=== PATIENT | female | born 1965 | race Native Hawaiian/Other Pacific Islander ===

== ENCOUNTER 2017-08-13 18:10 | Inpatient (IN) | payer MEDICARE, MEDICAID ==
[~2017-08-13] VITALS: Ht 162.6 cm; Wt 98.5 kg
[~2017-08-13 18:10] MED LIST: ASPI81 PO; ASPI81TA33 PO; LISI-660 PO; LISI-661 PO; METF500T4 PO; OMEP20 PO; QUET300XR PO; TRAZ-147 PO; VITAD1000 PO
[2017-08-13] MEDS ORDERED: HALOPERIDOL 5 MG TABLET PO PRN (18:45)
[2017-08-13] MEDS ORDERED: ZOLPIDEM TARTRATE 10 MG TABLET PO PRN (18:45)
[2017-08-13] MEDS ORDERED: INFLUENZA VIRUS VACCINE QVS 2017-18 (3YR+)/PF 60 MCG/0.5 ML SYRINGE IM ONE ×2 (19:00→21:00)
[2017-08-13 19:07] VITALS: BP 117/80
[2017-08-13 19:58] LABS: GLUCOMETER DEV NAME(LOC) BV2S; GLUCOSE,POINT OF CARE 261 MG/DL (70-110)
[2017-08-13] MEDS ORDERED: GLUCAGON,HUMAN RECOMBINANT 1 MG VIAL IM PRN (20:30)
[2017-08-13 20:37] LABS: GLUCOMETER DEV NAME(LOC) BV2S; GLUCOSE,POINT OF CARE 220 MG/DL (70-110)
[2017-08-13] MEDS ORDERED: MAGNESIUM HYDROXIDE SUSPENSION 30 ML UDCUP PO PRN (20:45)
[2017-08-13] MEDS: INSULIN ASPART 100 UNITS/ML SQ PRN (20:49)
[2017-08-14 00:45] VITALS: BP 115/72
[2017-08-14] MEDS: LORazepam 2 MG TABLET PO PRN (00:53)
[2017-08-14 06:22] LABS: GLUCOMETER DEV NAME(LOC) BV2S; GLUCOSE,POINT OF CARE 211 MG/DL (70-110)
[2017-08-14] MEDS: INSULIN ASPART 100 UNITS/ML SQ PRN ×4 (06:54→20:45)
[2017-08-14] MEDS ORDERED: MetFORMIN HCL 500 MG TABLET PO SCH (08:00)
[2017-08-14 08:21] LABS: BASOPHILS # (AUTO) 0.04 K/uL (0.00-0.20); BASOPHILS % (AUTO) 0.6 % (0.0-2.0); EOSINOPHILS % (AUTO) 5.79 % (1.0-6.0); HEMATOCRIT 38.4 % (36-46); HEMOGLOBIN 12.9 g/dL (12.0-16.0); LYMPHOCYTES # (AUTO) 1.9 K/uL (1.0-4.8); LYMPHOCYTES % (AUTO) 26.9 % (22.0-44.0); MEAN CORPUSCULAR HEMOGLOBIN 30.6 pg (26.0-34.0); MEAN CORPUSCULAR HGB CONC 33.6 G/dL (31.0-37.0); MEAN CORPUSCULAR VOLUME 91 fL (80-100); MONOCYTES # (AUTO) 0.6 K/uL (0.1-1.0); MONOCYTES % (AUTO) 8.3 % (2.0-9.0); NEUTROPHILS % (AUTO) 58.4 % (40.0-70.0); PLATELET COUNT (AUTO) 255 K/uL (150-450); RED CELL DISTRIBUTION WIDTH 12.5 % (11.5-14.5)
[2017-08-14] MEDS: BACITRACIN 28.4 GM OINTMENT TP SCH ×2 (08:23→16:37)
[2017-08-14] MEDS: LISINOPRIL 5 MG TABLET PO SCH (08:26)
[2017-08-14] MEDS: NICOTINE 21 MG/24 HOUR PATCH TD SCH (08:30)
[2017-08-14 08:37] VITALS: BP 139/76
[2017-08-14 08:58] LABS: ALANINE AMINOTRANSFERASE 17 U/L (12-78); ALBUMIN 3.1 g/dL (3.4-5.0); ALKALINE PHOSPHATASE 69 U/L (46-116); ANION GAP 7 mmol/L (8-16); ASPARTATE AMINOTRANSFERASE 18 U/L (15-37); BILIRUBIN,TOTAL 0.4 mg/dL (0.1-1.0); CALCIUM, TOTAL 9.2 mg/dL (8.8-10.5); CARBON DIOXIDE 27 mmol/L (22-29); CHLORIDE 98 mmol/L (98-107); CHOL/HDL RATIO 2.5 (3.9-5.7); CHOLESTEROL 114 mg/dL (131-200); CREATININE 0.67 mg/dL (0.60-1.30); FREE T4 (FREE THYROXINE) 1.04 ng/dL (0.76-1.46); GLOMERULAR FILTR. RATE CALC > 60 mL/min (>60); GLUCOSE,RANDOM 217 mg/dL (70-110); HDL CHOLESTEROL 46 mg/dL (40-60); LDL CHOL (CALC.) 48 mg/dL (0-130); POTASSIUM 4.2 mmol/L (3.5-5.1); SODIUM SERUM 132 mmol/L (136-145); THYROID STIMULATING HORMONE 2.39 uIU/mL (0.36-3.74); TOTAL PROTEIN, SERUM 7.3 g/dL (6.4-8.2); TRIGLYCERIDES 101 mg/dL (15-150); UREA NITROGEN, BLOOD 19 mg/dL (7-18)
[2017-08-14 10:04] LABS: HEMOGLOBIN A1C 9.4 % (4.5-6.2)
[2017-08-14] MEDS ORDERED: MAG HYDROX/AL HYDROX/SIMETH ES 30 ML SUSPENSION UDCUP PO PRN (10:15)
[2017-08-14] MEDS ORDERED: ONDANSETRON HCL 4 MG TABLET PO PRN (10:15)
[2017-08-14] MEDS ORDERED: IBUPROFEN 600 MG TABLET PO PRN (10:15)
[2017-08-14] MEDS ORDERED: LOPERAMIDE HCL 2 MG CAPSULE PO PRN (10:15)
[2017-08-14] MEDS ORDERED: ALBUTEROL SULFATE HFA 90 MCG/PUFF 8 GM INHALER IH PRN (10:15)
[2017-08-14] MEDS ORDERED: MAGNESIUM HYDROXIDE SUSPENSION 30 ML UDCUP PO PRN (10:15)
[2017-08-14] MEDS ORDERED: CloNIDine HCL 0.1 MG TABLET PO PRN (10:15)
[2017-08-14] MEDS ORDERED: PETROLATUM,WHITE 71 GM JELLY TP PRN (10:15)
[2017-08-14] MEDS ORDERED: BACITRACIN 28.4 GM OINTMENT TP PRN (10:15)
[2017-08-14] MEDS ORDERED: BENZOCAINE/MENTHOL LOZENGE MM PRN (10:15)
[2017-08-14] MEDS ORDERED: ACETAMINOPHEN 325 MG TABLET PO PRN (10:15)
[2017-08-14] MEDS: MetFORMIN HCL 500 MG TABLET PO SCH ×2 (10:30→16:36)
[2017-08-14] MEDS ORDERED: TRAZ-144 PO (14:54)
[2017-08-14 16:17] LABS: GLUCOMETER DEV NAME(LOC) BV2S; GLUCOSE,POINT OF CARE 236 MG/DL (70-110)
[2017-08-14 16:17] LABS: GLUCOMETER DEV NAME(LOC) BV2S; GLUCOSE,POINT OF CARE 228 MG/DL (70-110)
[2017-08-14 16:29] VITALS: BP 118/79
[2017-08-14 20:27] LABS: GLUCOMETER DEV NAME(LOC) BV2S; GLUCOSE,POINT OF CARE 210 MG/DL (70-110)
[2017-08-14] MEDS: QUEtiapine FUMARATE 300 MG TABLET PO SCH (20:37)
[2017-08-14] MEDS: DIVALPROEX SODIUM 500 MG DR TABLET PO SCH (20:37)
[2017-08-14] MEDS: TraZODone HCL 100 MG TABLET PO SCH (20:37)
[2017-08-15 01:02] VITALS: BP 112/65
[2017-08-15] MEDS: LORazepam 2 MG TABLET PO PRN (01:13)
[2017-08-15] MEDS: MetFORMIN HCL 500 MG TABLET PO SCH ×2 (06:34→16:39)
[2017-08-15] MEDS: INSULIN ASPART 100 UNITS/ML SQ PRN ×4 (06:36→20:44)
[2017-08-15 06:57] LABS: GLUCOMETER DEV NAME(LOC) BV2S; GLUCOSE,POINT OF CARE 221 MG/DL (70-110)
[2017-08-15] MEDS: LISINOPRIL 5 MG TABLET PO SCH (08:45)
[2017-08-15] MEDS: NICOTINE 21 MG/24 HOUR PATCH TD SCH (08:45)
[2017-08-15] MEDS: BACITRACIN 28.4 GM OINTMENT TP SCH ×2 (08:45→17:00)
[2017-08-15 08:47] VITALS: BP 125/90
[2017-08-15 15:57] VITALS: BP 118/72
[2017-08-15 16:23] LABS: GLUCOMETER DEV NAME(LOC) BV2S; GLUCOSE,POINT OF CARE 197 MG/DL (70-110)
[2017-08-15 16:23] LABS: GLUCOMETER DEV NAME(LOC) BV2S; GLUCOSE,POINT OF CARE 183 MG/DL (70-110)
[2017-08-15 20:17] LABS: GLUCOMETER DEV NAME(LOC) BV2S; GLUCOSE,POINT OF CARE 213 MG/DL (70-110)
[2017-08-15] MEDS: TraZODone HCL 100 MG TABLET PO SCH (20:37)
[2017-08-15] MEDS: DIVALPROEX SODIUM 500 MG DR TABLET PO SCH (20:37)
[2017-08-15] MEDS: QUEtiapine FUMARATE 300 MG TABLET PO SCH (20:37)
[2017-08-16 00:05] VITALS: BP 129/70
[2017-08-16] MEDS: MetFORMIN HCL 500 MG TABLET PO SCH ×2 (06:54→16:41)
[2017-08-16] MEDS: INSULIN ASPART 100 UNITS/ML SQ PRN ×2 (06:58→11:05)
[2017-08-16 07:07] LABS: GLUCOMETER DEV NAME(LOC) BV2S; GLUCOSE,POINT OF CARE 185 MG/DL (70-110)
[2017-08-16] MEDS: LISINOPRIL 5 MG TABLET PO SCH (08:20)
[2017-08-16] MEDS: NICOTINE 21 MG/24 HOUR PATCH TD SCH (08:20)
[2017-08-16 08:59] VITALS: BP 118/75
[2017-08-16 11:12] LABS: GLUCOMETER DEV NAME(LOC) BV2S; GLUCOSE,POINT OF CARE 223 MG/DL (70-110)
[2017-08-16 16:08] VITALS: BP 119/75
[2017-08-16] MEDS: LORazepam 2 MG TABLET PO PRN (18:01)
[2017-08-16] MEDS: TraZODone HCL 100 MG TABLET PO SCH (20:18)
[2017-08-16] MEDS: DIVALPROEX SODIUM 500 MG DR TABLET PO SCH (20:18)
[2017-08-16] MEDS: QUEtiapine FUMARATE 300 MG TABLET PO SCH (20:18)
[2017-08-17 00:10] VITALS: BP 105/72
[2017-08-17] MEDS: MetFORMIN HCL 500 MG TABLET PO SCH ×2 (07:09→17:23)
[2017-08-17] MEDS: LISINOPRIL 5 MG TABLET PO SCH (08:15)
[2017-08-17] MEDS: NICOTINE 21 MG/24 HOUR PATCH TD SCH (08:16)
[2017-08-17 08:25] VITALS: BP 123/79
[2017-08-17 16:11] VITALS: BP 117/69
[2017-08-17] MEDS: DIVALPROEX SODIUM 500 MG DR TABLET PO SCH (20:42)
[2017-08-17] MEDS: TraZODone HCL 100 MG TABLET PO SCH (20:42)
[2017-08-17] MEDS: QUEtiapine FUMARATE 300 MG TABLET PO SCH (20:43)
[2017-08-18 01:13] VITALS: BP 116/72
[2017-08-18] MEDS: MetFORMIN HCL 500 MG TABLET PO SCH (06:36)
[2017-08-18] MEDS: LISINOPRIL 5 MG TABLET PO SCH (08:07)
[2017-08-18] MEDS: NICOTINE 21 MG/24 HOUR PATCH TD SCH (08:07)
[2017-08-18] MEDS ORDERED: TRAZ-147 PO (08:31)
[2017-08-18] MEDS ORDERED: QUET300T2 PO (08:31)
[2017-08-18] MEDS ORDERED: DIVA500T35 PO (08:31)
[2017-08-18 08:34] VITALS: BP 113/85
== END 2017-08-18 10:00 | disposition home or self-care (01) | DRG 885 ==
LOC: B2X 18:46
PROVIDERS: ADMIT Psychiatry & Neurology Psychiatry; ATTEND Psychiatry & Neurology Psychiatry
PROC: 3E0234Z Introduction of Serum, Toxoid and Vaccine into Muscle, Percutaneous Approach (ICD-10-PCS; principal; 2017-08-13)
DX: F25.9 Schizoaffective disorder, unspecified (principal); E11.65 Type 2 diabetes mellitus with hyperglycemia; E11.9 Type 2 diabetes mellitus without complications; Z59.0 Homelessness; Z23 Encounter for immunization; E55.9 Vitamin D deficiency, unspecified; F12.90 Cannabis use, unspecified, uncomplicated; G47.00 Insomnia, unspecified; I10 Essential (primary) hypertension; J44.9 Chronic obstructive pulmonary disease, unspecified; K21.9 Gastro-esophageal reflux disease without esophagitis; Z82.49 Family history of ischemic heart disease and other diseases of the circulatory system; Z83.3 Family history of diabetes mellitus; M54.9 Dorsalgia, unspecified; F17.200 Nicotine dependence, unspecified, uncomplicated; Z71.6 Tobacco abuse counseling; Z71.51 Drug abuse counseling and surveillance of drug abuser; Z79.899 Other long term (current) drug therapy
CPT/HCPCS: 82962; 83036; 84439; 84443; 87081; 90471

== ENCOUNTER 2019-03-18 23:50 | Inpatient (IN) | payer OTHER, MEDICAID ==
[~2019-03-18 23:50] MED LIST changes: -ASPI81TA33 PO; +DIVA-78 PO; +METF-960 PO; -METF500T4 PO; -OMEP20 PO; +QUET300T2 PO; -QUET300XR PO; -TRAZ-147 PO; +TRAZ-220 PO; -VITAD1000 PO
[2019-03-19] MEDS ORDERED: HALOPERIDOL 5 MG TABLET PO PRN (00:30)
[2019-03-19] MEDS ORDERED: ZOLPIDEM TARTRATE 10 MG TABLET PO PRN (00:30)
[2019-03-19 08:26] VITALS: BP 130/77
[2019-03-19] MEDS ORDERED: ALBUTEROL SULFATE HFA 90 MCG/PUFF 8 GM INHALER IH PRN (08:30)
[2019-03-19] MEDS ORDERED: PETROLATUM,WHITE 28 GM JELLY TP PRN (08:30)
[2019-03-19] MEDS ORDERED: LOPERAMIDE HCL 2 MG CAPSULE PO PRN (08:30)
[2019-03-19] MEDS ORDERED: ONDANSETRON HCL 4 MG TABLET PO PRN (08:30)
[2019-03-19] MEDS ORDERED: DOCUSATE SODIUM 100 MG CAPSULE PO PRN (08:30)
[2019-03-19] MEDS ORDERED: GLUCAGON,HUMAN RECOMBINANT 1 MG VIAL IM PRN (08:30)
[2019-03-19] MEDS ORDERED: ACETAMINOPHEN 325 MG TABLET PO PRN (08:30)
[2019-03-19] MEDS ORDERED: MAG HYDROX/AL HYDROX/SIMETH ES 30 ML SUSPENSION UDCUP PO PRN (08:30)
[2019-03-19] MEDS ORDERED: OMEPRAZOLE 20 MG CAPSULE PO PRN (08:30)
[2019-03-19] MEDS ORDERED: BACITRACIN 28.4 GM OINTMENT TP PRN (08:30)
[2019-03-19] MEDS ORDERED: CloNIDine HCL 0.1 MG TABLET PO PRN (08:30)
[2019-03-19] MEDS ORDERED: MAGNESIUM HYDROXIDE SUSPENSION 30 ML UDCUP PO PRN (08:30)
[2019-03-19] MEDS ORDERED: BENZOCAINE/MENTHOL LOZENGE MM PRN (08:30)
[2019-03-19] MEDS ORDERED: IBUPROFEN 600 MG TABLET PO PRN (08:30)
[2019-03-19] MEDS: LISINOPRIL 5 MG TABLET PO SCH (09:28)
[2019-03-19] MEDS: DIVALPROEX SODIUM 500 MG ER TABLET PO SCH ×2 (10:31→16:19)
[2019-03-19 14:25] LABS: GLUCOMETER DEV NAME(LOC) BV3S.; GLUCOSE,POINT OF CARE 197 MG/DL (70-110)
[2019-03-19 16:08] VITALS: BP 125/96
[2019-03-19] MEDS: MetFORMIN HCL 500 MG TABLET PO SCH (16:19)
[2019-03-19] MEDS: INSULIN LISPRO 100 UNITS/ML SQ PRN (16:51)
[2019-03-19 17:01] LABS: GLUCOMETER DEV NAME(LOC) BV3S.; GLUCOSE,POINT OF CARE 197 MG/DL (70-110)
[2019-03-19] MEDS: TraZODone HCL 100 MG TABLET PO SCH (20:10)
[2019-03-19] MEDS: QUEtiapine FUMARATE 300 MG TABLET PO SCH (20:10)
[2019-03-19 20:20] LABS: GLUCOMETER DEV NAME(LOC) BV3S.; GLUCOSE,POINT OF CARE 140 MG/DL (70-110)
[2019-03-20 05:34] VITALS: BP 132/89
[2019-03-20 06:21] LABS: GLUCOMETER DEV NAME(LOC) BV3S.; GLUCOSE,POINT OF CARE 148 MG/DL (70-110)
[2019-03-20] MEDS: MetFORMIN HCL 500 MG TABLET PO SCH ×2 (06:26→16:38)
[2019-03-20] MEDS: DIVALPROEX SODIUM 500 MG ER TABLET PO SCH ×2 (08:13→16:38)
[2019-03-20] MEDS: LISINOPRIL 5 MG TABLET PO SCH (08:13)
[2019-03-20 08:19] LABS: BASOPHILS % (AUTO) 0.5 % (0.0-2.0); HEMATOCRIT 34.8 % (36-46); HEMOGLOBIN 11.3 g/dL (12.0-16.0); LYMPHOCYTES # (AUTO) 3.5 K/uL (1.0-4.8); LYMPHOCYTES % (AUTO) 36.7 % (22.0-44.0); MEAN CORPUSCULAR HEMOGLOBIN 29.9 pg (26.0-34.0); MEAN CORPUSCULAR HGB CONC 32.5 G/dL (31.0-37.0); MEAN CORPUSCULAR VOLUME 92 fL (80-100); MONOCYTES # (AUTO) 0.7 K/uL (0.1-1.0); MONOCYTES % (AUTO) 7.1 % (2.0-9.0); NEUTROPHILS % (AUTO) 51.7 % (40.0-70.0); PLATELET COUNT (AUTO) 267 K/uL (150-450); RED BLOOD CELL COUNT(AUTO) 3.78 MIL/uL (4.00-5.20)
[2019-03-20 08:22] VITALS: BP 114/70
[2019-03-20 08:41] LABS: HEMOGLOBIN A1C 7.7 % (4.5-6.2)
[2019-03-20 09:03] LABS: ANION GAP 12 mmol/L (8-16); CARBON DIOXIDE 26 mmol/L (22-29); CHLORIDE 98 mmol/L (98-107); CREATININE 0.77 mg/dL (0.60-1.30); GLOMERULAR FILTR. RATE CALC > 60 mL/min (>60); GLUCOSE,RANDOM 189 mg/dL (70-110); POTASSIUM 4.2 mmol/L (3.5-5.1); SODIUM SERUM 136 mmol/L (136-145); UREA NITROGEN, BLOOD 11 mg/dL (7-18)
[2019-03-20 09:04] LABS: ALANINE AMINOTRANSFERASE 8 U/L (12-78); ALBUMIN 3.3 g/dL (3.4-5.0); ALKALINE PHOSPHATASE 54 U/L (46-116); ASPARTATE AMINOTRANSFERASE 17 U/L (15-37); BILIRUBIN,TOTAL 0.2 mg/dL (0.1-1.0); CALCIUM, TOTAL 9.5 mg/dL (8.8-10.5); CHOL/HDL RATIO 2.7 (3.9-5.7); CHOLESTEROL 112 mg/dL (131-200); FREE T4 (FREE THYROXINE) 1.29 ng/dL (0.76-1.46); HDL CHOLESTEROL 41 mg/dL (40-60); LDL CHOL (CALC.) 44 mg/dL (0-130); THYROID STIMULATING HORMONE 2.72 uIU/mL (0.36-3.74); TOTAL PROTEIN, SERUM 7.1 g/dL (6.4-8.2); TRIGLYCERIDES 133 mg/dL (15-150)
[2019-03-20 11:16] LABS: GLUCOMETER DEV NAME(LOC) BV3S.; GLUCOSE,POINT OF CARE 144 MG/DL (70-110)
[2019-03-20] MEDS: INSULIN LISPRO 100 UNITS/ML SQ PRN ×2 (11:45→17:23)
[2019-03-20 16:00] VITALS: BP 135/72
[2019-03-20 17:17] LABS: GLUCOMETER DEV NAME(LOC) BV3S.; GLUCOSE,POINT OF CARE 160 MG/DL (70-110)
[2019-03-20] MEDS: TraZODone HCL 100 MG TABLET PO SCH (20:11)
[2019-03-20] MEDS: QUEtiapine FUMARATE 300 MG TABLET PO SCH (20:12)
[2019-03-21 04:49] VITALS: BP 111/59
[2019-03-21] MEDS: FERROUS SULFATE 325 MG EC TABLET PO SCH ×2 (06:46→16:16)
[2019-03-21] MEDS: MetFORMIN HCL 500 MG TABLET PO SCH ×2 (06:46→17:07)
[2019-03-21] MEDS: INSULIN LISPRO 100 UNITS/ML SQ PRN ×2 (06:56→17:31)
[2019-03-21 07:10] LABS: GLUCOMETER DEV NAME(LOC) BV3S.; GLUCOSE,POINT OF CARE 148 MG/DL (70-110)
[2019-03-21] MEDS: HYDROCORTISONE 1% 30 GM OINTMENT TP SCH ×2 (08:06→16:16)
[2019-03-21] MEDS: LISINOPRIL 5 MG TABLET PO SCH (08:06)
[2019-03-21] MEDS: DIVALPROEX SODIUM 500 MG ER TABLET PO SCH ×2 (08:07→16:16)
[2019-03-21 08:33] VITALS: BP 126/70
[2019-03-21 09:19] LABS: % IRON SATURATION 16.1 % (22-44)
[2019-03-21 12:52] LABS: GLUCOMETER DEV NAME(LOC) BV3S.; GLUCOSE,POINT OF CARE 136 MG/DL (70-110)
[2019-03-21] MEDS: LORazepam 2 MG TABLET PO PRN (16:05)
[2019-03-21 16:16] VITALS: BP 108/64
[2019-03-21 17:07] LABS: GLUCOMETER DEV NAME(LOC) BV3S.; GLUCOSE,POINT OF CARE 174 MG/DL (70-110)
[2019-03-21] MEDS: TraZODone HCL 100 MG TABLET PO SCH (20:36)
[2019-03-21] MEDS: QUEtiapine FUMARATE 300 MG TABLET PO SCH (20:36)
[2019-03-21 21:27] LABS: GLUCOMETER DEV NAME(LOC) BV3S.; GLUCOSE,POINT OF CARE 120 MG/DL (70-110)
[2019-03-22 05:18] VITALS: BP 118/72
[2019-03-22] MEDS: MetFORMIN HCL 500 MG TABLET PO SCH (06:38)
[2019-03-22] MEDS: FERROUS SULFATE 325 MG EC TABLET PO SCH (06:38)
[2019-03-22 06:44] LABS: GLUCOMETER DEV NAME(LOC) BV3S.; GLUCOSE,POINT OF CARE 151 MG/DL (70-110)
[2019-03-22] MEDS: INSULIN LISPRO 100 UNITS/ML SQ PRN ×2 (07:03→12:18)
[2019-03-22 08:23] VITALS: BP 129/65
[2019-03-22] MEDS: HYDROCORTISONE 1% 30 GM OINTMENT TP SCH (09:07)
[2019-03-22] MEDS: DIVALPROEX SODIUM 500 MG ER TABLET PO SCH (09:07)
[2019-03-22] MEDS: LORazepam 2 MG TABLET PO PRN (09:13)
[2019-03-22] MEDS: LISINOPRIL 5 MG TABLET PO SCH (09:13)
[2019-03-22 12:22] LABS: GLUCOMETER DEV NAME(LOC) BV3S.; GLUCOSE,POINT OF CARE 176 MG/DL (70-110)
[2019-03-22] MEDS ORDERED: DIVA500T52 PO (13:22)
[2019-03-23] MEDS ORDERED: MULTIVITAMINS WITH MINERALS, THERAPEUTIC TABLET PO SCH (07:30)
[2019-03-23 08:03] LABS: APPEARANCE,URINE CLEAR (CLEAR); BILIRUBIN,URINE NEGATIVE (NEGATIVE); GLUCOSE, URINE (UA) 100 mg/dL (NEGATIVE); KETONES,URINE NEGATIVE (NEGATIVE); LEUKOCYTE ESTERASE ,URINE NEGATIVE (NEGATIVE); NITRATE,URINE NEGATIVE (NEGATIVE); OCCULT BLOOD,URINE TRACE (NEGATIVE); PROTEIN,URINE NEGATIVE (NEGATIVE); UROBILINOGEN,URINE 0.2 mg/dL (<=1.0)
[2019-03-23 08:10] LABS: AMPHET/METH SCREEN,URINE NEGATIVE (NEGATIVE); BARBITURATE SCREEN, URINE NEGATIVE (NEGATIVE); BENZODIAZEPINES SCREEN,URINE NEGATIVE (NEGATIVE); CANNABINOID SCREEN,URINE POSITIVE (NEGATIVE); COCAINE SCREEN,URINE NEGATIVE (NEGATIVE); METHADONE SCREEN, URINE NEGATIVE (NEGATIVE); OPIATE SCREEN,URINE NEGATIVE (NEGATIVE)
[2019-03-23 08:11] LABS: PHENCYCLIDINE SCREEN,URINE NEGATIVE (NEGATIVE)
[2019-03-23 08:15] LABS: BACTERIA,URINE None Seen /HPF (None Seen); RBC,URINE 0-2 /HPF (0-2); SQUAMOUS EPITHELIAL CELL,UR Few /LPF (None Seen); WBC,URINE None Seen /HPF (0-5)
== END 2019-03-22 15:00 | disposition home or self-care (01) | DRG 885 ==
LOC: B3A 23:50
PROVIDERS: ADMIT Psychiatry & Neurology Child & Adolescent Psychiatry; ATTEND Psychiatry & Neurology Psychiatry
DX: F25.9 Schizoaffective disorder, unspecified (principal); E11.65 Type 2 diabetes mellitus with hyperglycemia; E55.9 Vitamin D deficiency, unspecified; F12.90 Cannabis use, unspecified, uncomplicated; Z71.41 Alcohol abuse counseling and surveillance of alcoholic; F17.200 Nicotine dependence, unspecified, uncomplicated; G47.00 Insomnia, unspecified; I10 Essential (primary) hypertension; J44.9 Chronic obstructive pulmonary disease, unspecified; K21.9 Gastro-esophageal reflux disease without esophagitis; Z59.0 Homelessness; Z82.49 Family history of ischemic heart disease and other diseases of the circulatory system; Z83.3 Family history of diabetes mellitus; Z91.19 Patient's noncompliance with other medical treatment and regimen; Z79.899 Other long term (current) drug therapy
CPT/HCPCS: 80307; 83036; 83540; 83550; 84439; 84443; 87081